=== PATIENT | male | born 1945 | race Hispanic/Latino ===

== ENCOUNTER 2018-08-28 13:19 | Emergency (ER) | payer SELFPAY ==
[2018-08-28 13:58] LABS: #Eosinphils 0.2 thou/uL (0.0-0.7); #Lymphocytes 1.4 thou/uL (1.20-3.40); #Monocytes 0.3 thou/uL (0.11-0.59); #Neutrophils 4.5 thou/uL (1.40-6.50); %Basophils 0.4 % (0.0-1.0); %Eosinophils 2.8 % (0.0-10.0); %Lymphocytes 22.4 % (21.0-51.0); %Monocytes 4.6 % (0.0-10.0); %Neutrophils 69.9 % (42.0-75.0); Hemoglobin 12.6 g/dL (14.0-18.0); Mean Corpuscular HGB CONC 34.5 g/dL (32.0-36.0); Mean Corpuscular Hemoglobin 28.7 pg (27.0-31.0); Mean Corpuscular Volume 83.3 fL (78.0-98.0); Mean Platelet Volume 6.8 fL (7.4-10.4); Platelet Count 181 thou/uL (130-400); RBC Distribution Width 11.6 % (11.5-14.5); White Blood Cell (WBC) Count 6.5 thou/uL (4.8-10.8)
[2018-08-28 14:16] LABS: ALT (SGPT) 18 U/L (8-55); AST (SGOT) 14 U/L (5-34); Albumin 3.6 g/dL (3.4-4.8); Alkaline Phosphatase 161 U/L (40-150); Anion Gap 8 mmol/L (10-20); BUN (Urea Nitrogen) 30 mg/dL (8.4-25.7); Bilirubin, Total 0.3 mg/dL (0.2-1.2); Calc. Creatinine Clearance 0 mL/min (70-130); Calcium 8.5 mg/dL (7.8-10.44); Carbon Dioxide 25 mmol/L (23-31); Chloride 107 mmol/L (98-107); Estimated GFR-MDRD 47; Globulin 2.2 g/dL (2.4-3.5); Glucose 309 mg/dL (83-110); Potassium 5.3 mmol/L (3.5-5.1); Protein, Total 5.8 g/dL (5.8-8.1); Sodium 135 mmol/L (136-145)
[2018-08-28] MEDS ORDERED: Insulin Regular 300 UNITS/3 ML VIAL ONE (14:52)
--- NOTE | 2018-09-01 16:51 | EKG ---
Test Reason : Blood Pressure : / mmHG Vent. Rate : 107 BPM Atrial Rate : 107 BPM P-R Int : 128 ms QRS Dur : 068 ms QT Int : 318 ms P-R-T Axes : 038 080 082 degrees QTc Int : 424 ms Sinus tachycardia Confirmed by MARLENE BERGER DO ([id number]), mapping editor ISA ARRINGTON ([id number] on 09/01/2018 4:51:37 PM Referred By: Confirmed By:MARLENE BERGER DO
== END 2018-08-28 17:00 | disposition home or self-care (01) ==
LOC: ERS 13:19
DX: E11.65 Type 2 diabetes mellitus with hyperglycemia (principal); E78.5 Hyperlipidemia, unspecified; I10 Essential (primary) hypertension; Z79.899 Other long term (current) drug therapy; Z79.51 Long term (current) use of inhaled steroids; W19.XXXA Unspecified fall, initial encounter
CPT/HCPCS: 36415; 36416; 80053; 84484; 85025; 93005; 94760; 96361; 96374; J1815

== ENCOUNTER 2021-08-09 13:24 | Observation (INO) | payer MEDICARE, SELFPAY ==
[2021-08-09 14:18] LABS: #Eosinphils 0.1 thou/uL (0.0-0.7); #Lymphocytes 1.9 thou/uL (1.20-3.40); #Monocytes 0.5 thou/uL (0.11-0.59); #Neutrophils 4.2 thou/uL (1.40-6.50); %Basophils 0.3 % (0.0-1.0); %Monocytes 7.4 % (0.0-10.0); %Neutrophils 62.3 % (42.0-75.0); Hemoglobin 12.7 g/dL (14.0-18.0); Mean Corpuscular HGB CONC 32.5 g/dL (32.0-36.0); Mean Corpuscular Hemoglobin 28.1 pg (27.0-31.0); Mean Corpuscular Volume 86.4 fL (78.0-98.0); Mean Platelet Volume 6.5 fL (7.4-10.4); Platelet Count 185 thou/uL (130-400); RBC Distribution Width 11.9 % (11.5-14.5); Red Blood Cell (RBC) Count 4.51 mill/uL (4.70-6.10); White Blood Cell (WBC) Count 6.7 thou/uL (4.8-10.8)
[2021-08-09 14:37] LABS: ALT (SGPT) 39 U/L (8-55); AST (SGOT) 26 U/L (5-34); Alkaline Phosphatase 127 U/L (40-110); Anion Gap 17 mmol/L (10-20); BUN (Urea Nitrogen) 34 mg/dL (8.4-25.7); Bilirubin, Total 0.5 mg/dL (0.2-1.2); Calc. Creatinine Clearance 0 mL/min (70-130); Calcium 10.2 mg/dL (7.8-10.44); Carbon Dioxide 23 mmol/L (23-31); Chloride 103 mmol/L (98-107); Globulin 3.1 g/dL (2.4-3.5); Glucose 111 mg/dL (83-110); Potassium 4.1 mmol/L (3.5-5.1); Protein, Total 7.1 g/dL (5.8-8.1); Sodium 139 mmol/L (136-145)
[2021-08-09 15:49] LABS: Bilirubin Negative (Negative); Blood, Urine Negative (Negative); Clarity Clear (Clear); Glucose, Urine (Dipstick) Greater than 1000 mg/dL (Negative); Ketone, Urine Negative (Negative); Leukocyte Negative Leu/uL (Negative); Nitrite Negative (Negative); Protein, Urine (Dipstick) 10 mg/dL (Neg-Trace); Specific Gravity, Urine 1.025 (1.002-1.036); Urobilinogen Normal mg/dL (Less than 2)
[2021-08-09] MEDS ORDERED: Acetaminophen 325 MG TAB PO PRN (16:41)
[2021-08-09] MEDS ORDERED: Ondansetron PF 4 MG/2 ML Vial IVP PRN (16:41)
[2021-08-09] MEDS ORDERED: Dextrose 5% in Water 1,000 ML IV PRN (17:39)
[2021-08-09] MEDS ORDERED: Dextrose 50% Abboject 50 ML SYRINGE SLOW IVP PRN (17:39)
[2021-08-09 18:18] VITALS: BMI 21.8
[2021-08-09] MEDS: Lactated Ringer's 1,000 ML IV SCH (20:27)
[2021-08-09] MEDS ORDERED: Rosuvastatin 10 MG TAB PO SCH (21:00)
[2021-08-09] MEDS ORDERED: Famotidine 20 MG TAB PO SCH (21:00)
[2021-08-10 05:18] LABS: Hemoglobin 11.9 g/dL (14.0-18.0); Mean Corpuscular HGB CONC 33.6 g/dL (32.0-36.0); Mean Corpuscular Hemoglobin 29.3 pg (27.0-31.0); Mean Corpuscular Volume 87.2 fL (78.0-98.0); Mean Platelet Volume 6.8 fL (7.4-10.4); Platelet Count 169 thou/uL (130-400); Red Blood Cell (RBC) Count 4.06 mill/uL (4.70-6.10); White Blood Cell (WBC) Count 6.1 thou/uL (4.8-10.8)
[2021-08-10] MEDS: Lactated Ringer's 1,000 ML IV SCH (05:57)
[2021-08-10] MEDS: HumaLOG 300 UNITS/3 ML VIAL SC PRN ×2 (06:24→11:50)
[2021-08-10 06:55] LABS: Eosinophils 1 % (0-10); Lymphocytes 26 % (21-51); MDiff Complete? YES; Monocytes 8 % (0-10); Neutrophil 64 % (42-75)
[2021-08-10] MEDS ORDERED: MECLIZINE HCL 25 MG PO PRN (07:41)
[2021-08-10] MEDS ORDERED: Meclizine HCl 25 MG TAB PO PRN (07:43)
[2021-08-10 08:30] LABS: Anion Gap 12 mmol/L (10-20); BUN (Urea Nitrogen) 26 mg/dL (8.4-25.7); Calc. Creatinine Clearance 31 mL/min (70-130); Calcium 9.1 mg/dL (7.8-10.44); Carbon Dioxide 24 mmol/L (23-31); Chloride 102 mmol/L (98-107); Glucose 262 mg/dL (83-110); Potassium 4.5 mmol/L (3.5-5.1); Sodium 133 mmol/L (136-145)
[2021-08-10] MEDS ORDERED: NIFEdipine XL 30 MG TAB PO SCH (09:00)
[2021-08-10] MEDS ORDERED: Gabapentin 300 MG CAP PO SCH (09:00)
[2021-08-10 09:33] VITALS: TEMP 98
[2021-08-10 10:24] LABS: Hemoglobin A1c 13.9 % (4.0-6.0)
[2021-08-10 12:06] VITALS: BP 170/80
[2021-08-10 14:34] LABS: SARS-CoV-2 PCR by NAA Not Detected (NotDetected)
[2021-08-10] MEDS ORDERED: Famotidine 20 MG TAB PO SCH (21:00)
== END 2021-08-10 15:00 | disposition home or self-care (01) ==
LOC: ERS 13:24 → 2SW 16:32
PROVIDERS: ADMIT Internal Medicine; ATTEND Physician Assistant Medical
DX: R53.1 Weakness (principal); E86.9 Volume depletion, unspecified; N17.9 Acute kidney failure, unspecified; I95.9 Hypotension, unspecified; I10 Essential (primary) hypertension; E11.9 Type 2 diabetes mellitus without complications; J45.909 Unspecified asthma, uncomplicated; I35.8 Other nonrheumatic aortic valve disorders; Z79.899 Other long term (current) drug therapy; Z20.822 Contact with and (suspected) exposure to COVID-19
CPT/HCPCS: 70450; 71045; 80048; 80053; 81003; 82962 ×2; 83036; 84484 ×2; 85007; 85025; 85027; 93005; 93306; U0003; U0005; 36415; 36416; G0378; J1815; J7120